=== PATIENT | female | born 1990 | race Caucasian/White ===

== ENCOUNTER 2020-04-24 11:50 | Observation (INO) | payer SELFPAY ==
[2020-04-24] VITALS (11 sets, daily range): BP systolic 105–127; BP diastolic 58–77; PULSE 68–85; RESP 16–20; TEMP 36.3–37.3; O2SAT 95–100; BMI 28.5; BMI 28.6
[2020-04-24] MEDS: 0.9% Saline Lock 10 ML Syringe IV (08:45)
--- NOTE | 2020-04-24 08:52 | RAD_ITS ---
STUDY: INTRAOPERATIVE CHOLANGIOGRAM. REASON FOR EXAM: Female, 30 years old. ABD PAIN, STONES FLUOROSCOPY TIME (if supplied): ( 14.5 seconds ) minutes/seconds. A single image was submitted. TECHNIQUE: Intraoperative cholangiogram was performed by the surgeon. Imaging was submitted. COMPARISON: None. FINDINGS: Mild degree of dilatation of the visualized central intrahepatic biliary ducts as well as the common bile duct. RAD/Cholangiogram/ O R,Initial IMPRESSION: Dilated central intrahepatic biliary ducts as well as the common bile duct. Electronically Signed: Eduardo Louis MD at 10:59 EST , Service support ,
--- NOTE | 2020-04-24 08:53 | EKG12_ITS ---
Test Reason : PREOP Blood Pressure : / mmHG Vent. Rate : 073 BPM Atrial Rate : 073 BPM P-R Int : 146 ms QRS Dur : 078 ms QT Int : 380 ms P-R-T Axes : 019 064 008 degrees QTc Int : 418 ms Normal sinus rhythm Nonspecific ST abnormality Abnormal ECG No previous ECGs available Confirmed by ELTON VALDERRAMA, IRMA ([id number]), purchasing expeditor KENJI WILLAMS ([id number]) on 04/29/2020 8:49:00 AM Referred By: GEORGE Confirmed By:IRMA CONDE MD
[2020-04-24] MEDS: Lactated Ringers 1,000 ML 100 ML IV ×3 (08:55→22:59)
--- NOTE | 2020-04-24 09:17 | HP.PCM_ITS ---
Problem List (1) Choledocholithiasis with acute cholecystitis Status: Acute History of Present Illness Date of Admission: 04/24/20 The patient is a 30 year old F who presented to an outside ER with abdominal pain since yesterday. The patient reports nausea with vomiting. She has no fevers or chills. Patient also reports she is 13 weeks and has a history of miscarriage. The patient reports that the pain is in her abdomen which radiates to the back. Past Medical History Allergies No Known Allergies Allergy (Verified 04/24/20 08:22) Home Medications: Ambulatory Orders Medication Instructions Recorded Levothyroxine [Synthroid] 100 mcg PO DAILY 04/24/20 Smoking Status: Never smoker Review of Systems Constitutional: Denies: Anorexia, Fever HEENT: Denies: Difficulty Swallowing Cardiovascular: Denies: Chest Pain Respiratory: Denies: Cough, Shortness of Breath Gastrointestinal: Reports: Abdominal Pain, Nausea, Vomiting Genitourinary: Denies: Dysuria Gynecological: Reports: - - Currently Musculoskeletal: Denies: Joint Tenderness Skin: Denies: Jaundice Hematologic/ Lymphatic: Denies: Anemia VTE Information - Inpt Only VTE Present on Admission: No VTE Mechan Device Prophylaxis: SCD's - Physical Exam Vitals/I&O's: Vital Signs Temp Pulse Resp BP Pulse Ox 98.3 F 76 16 112/64 100 04/24/20 08:34 04/24/20 08:34 04/24/20 08:34 04/24/20 08:34 04/24/20 08:34 Oxygen Delivery Method Room Air Weight: 171 lb 11.841 oz Body Mass Index (BMI) 28.5 General: Alert, Oriented x3 Neck: No JVD Lungs: Normal air movement Cardiovascular: Regular rate, Regular Rhythm Abdomen: Soft, Non-Distended, Tender - Tender in the upper abdomen Extremities: No clubbing Musculoskeletal: No Muscle Wasting Neurological: Cranial nerves II-XII grossly intact Psych/Mental Status: Normal Affect Current Medications Sodium Chloride () 250 mls @ 15 mls/hr IV .[id number] PRN PRN Reason: Saline Flush Cefotetan Disodium 2 gm/ (Sodium Chloride) 100 mls @ 200 mls/hr IV SEND TO OR W/PATIENT ONE Stop: 04/24/20 09:21 Lactated Ringer's () 1,000 mls @ 100 mls/hr IV .Q10H [facility] Last Admin: 04/24/20 08:55 Dose: 100 mls/hr Documented by: Sodium Chloride (0.9% Saline Lock 10 Ml Syringe) 10 - 40 ml IV UD PRN PRN Reason: SALINE FLUSH Assessment/Plan All Active Problems Choledocholithiasis with acute cholecystitis (Acute) 30-year-old female transferred from outside hospital with choledocholithiasis with acute cholecystitis 1. The patient had an ultrasound done at the outside hospital which showed thickening of the gallbladder wall as well as cholelithiasis. The patient also has elevated liver enzymes and a left shift on her CBC. She has acute onset pain in the upper abdomen which radiates to the back. I believe the patient likely has choledocholithiasis with acute cholecystitis. I recommended laparoscopic cholecystectomy with cholangiogram and I did discuss performing ERCP at the same time if necessary. The patient agrees and would like to proceed. 2. I discussed the procedure in detail with the patient. I discussed the risks, benefits, and alternatives of the procedure. I discussed the risks including but not limited to bleeding, infection, injury to surrounding organs such as the liver, bile duct, bowels. I did discuss the possibility of having to convert to an open procedure as well as the possibility that if any injuries occurred this may necessitate further surgery at a tertiary care center. 3. I also discussed ERCP with the patient. I discussed the risks of bleeding, infection, pancreatitis, perforation of the bile duct or bowel. The patient understands the risks of endoscopy and is willing to proceed if necessary at the same time. 4. The patient is currently and does have a history of miscarriage. I did discuss the possibility and risk of demise or injury with the patient as well. I did discuss with her that if this infection was left alone it would likely cause serious risks of the fetus as well. I believe that the benefit of surgery outweigh the risks. I discussed with OB and they are in agreement. I will get heart tones before and after surgery and order some antibiotics. Patient understands the risk to her fetus and is willing to proceed with surgery. David English MD Pager: [facility] [address] [place] [address], [address] [place] [address] Office:
--- NOTE | 2020-04-24 10:38 | GALL_PTH ---
PATIENT: SHONNA BAKER LOC: MS3 U#:[id number] AGE/SX: 30/F ROOM: CA321 RE04/24/[address]: Dr. David English MD : 1990 BED: 1 DIS: 04/25/2020 SPEC #: [id number] RECD: 04/24/20 11:50 STATUS: JASON RELove #: [id number] AYAZ: 04/24/20 10:[address]: David English DEPT: SURGICAL PATHOLOGY RECD BY: Mecca Rivera ENTERED: 04/24/20 13:06 SP TYPE: MALIA WEIR DR: Dr. Garry Garrido DO Tissues: Gallbladder, NOS Procedures: Surgery Specimen Level III HEADER OPERATION: Laparoscopic cholecystectomy with IOC PRE-OP DIAGNOSIS: Choledocholithiasis with acute cholecystitis TISSUE SUBMITTED: Gallbladder MICROSCOPIC DIAGNOSIS Gallbladder, cholecystectomy: Chronic cholecystitis and cholelithiasis. AM:belia 04/25/2020 MICROSCOPIC DESCRIPTION Slides are reviewed. GROSS DESCRIPTION Received is one container labeled with the patient's name and designated gallbladder. The specimen consists of a gallbladder measuring 7 x 2.5 x 2.5 cm. The external surface is smooth and glistening. Focally, it is granular, hemorrhagic and contains cautery artifact. The lumen of the gallbladder contains a small amount of greenish mucoid bile and multiple green-black calculi ranging in size from 0.1 to 0.5 cm in greatest dimension. The mucosa is bile-stained and without any mass lesions. The gallbladder wall averages 0.2 cm in thickness and is free of mass lesions. Payroll Examiner sections of the gallbladder and the cystic duct at margin of resection are submitted in one cassette. / AM:belia 04/24/20 TC:3 [facility]: [id number]
[2020-04-24] MEDS: Bupiv/Epi 0.25% 30 ML Vial (10:42)
--- NOTE | 2020-04-24 11:10 | RAD_ITS ---
STUDY: ERCP REASON FOR EXAM: Female, 30 years old. ERCP S/P LAP MAGALI -- 1 FLUORO IMAGE, 223.1 SEC, 16.39mGy -- PT IS 13 WEEKS - LOW DOSE OPTION USED ON FLUORO UNIT FLUOROSCOPY TIME (if supplied): ( 223 seconds ) minutes/seconds. One fluoroscopic image provided. TECHNIQUE: ERCP was performed by the surgeon. Imaging was submitted. COMPARISON: None. FINDINGS: There is visualization of the common bile duct. A balloon catheter is seen within it. RAD/ERCP Biliary/Pancreas IMPRESSION: Balloon catheter within the common bile duct. Electronically Signed: Eduardo Louis MD at 12:25 EST , Service support ,
--- NOTE | 2020-04-24 11:44 | SUR.PHASEI ---
HEART TONES OBTAINED IN PACU BY MALKA DOZIRE RN = 160 bpm.
--- NOTE | 2020-04-24 11:51 | OP.PCM_ITS ---
Problem List (1) Choledocholithiasis with acute cholecystitis Status: Acute Report of Operation Date of Procedure: 04/24/20 Pre-Operative Diagnosis: Acute cholecystitis Post-Operative Diagnosis: Choledocholithiasis with acute cholecystitis Surgery/Procedure Performed:: 1. Laparoscopic cholecystectomy with cholangiogram. 2. ERCP with sphincterotomy and stone removal Specimen's removed: Gallbladder and contents Description of Procedure: After obtaining informed consent patient was brought back to the operating room. General anesthesia was induced. The abdomen was prepped and draped in usual sterile fashion. A small midline incision was made superior to the umbilicus and deepened to the level of fascia. The fascia was elevated and incised. Next the peritoneum was elevated and incised in the same fashion. Finger sweep was performed and the Hernandez trocar was placed into the abdomen. The balloon was inflated. The abdomen was inflated to 15 mmHg. Next a camera was introduced into the abdomen and the abdomen was inspected. Next under direct visualization three 5-mm ports were placed one subxiphoid and 2 subcostal. Next the gallbladder was elevated and retracted toward the right shoulder. The peritoneum was stripped from the gallbladder. The infundibulum was located and retracted laterally. Next the triangle of Calot was dissected and the cystic duct and cystic artery were identified. Cholangiograms were performed. A stone was identified in the cystic duct so the Ranfac catheter was selected. A small rosalva was made in the right upper quadrant and the Ranfac was placed into the abdomen. A clip was placed in the proximal cystic duct and the cystic duct was opened with scissors and the stone was milked through. The Ranfac catheter was placed through the cystic duct and a clip was placed over it. Under fluoroscopy contrast was instilled into the gallbladder and the common duct, cystic duct as well as proximal hepatic ducts were identified. There was good filling of the duodenum. There were several filling defects noted in the common bile duct. The clip was removed as well as the catheter and the infundibulum was grasped once more. Three hemolock clips were placed across the cystic duct. The cystic duct was then divided leaving 2 clips on the stump. The cystic artery was clipped and divided in the same fashion. The hook cautery was then used to take the gallbladder off of the gallbladder bed. Hemostasis was obtained. Gallbladder fossa was irrigated and no active bleeding or bile leakage was noted. Next the camera was introduced in the subxiphoid port. An Endopouch bag was placed through the umbilical port and the gallbladder was placed into it. The gallbladder was then removed through the umbilical incision. The camera was then reinserted through the umbilical port. The gallbladder fossa was inspected once more and noted to be hemostatic with no leaking bile. The abdomen was suctioned dry. The 5 mm ports were removed under direct visualization. The umbilical port was then removed and the air was removed from the abdomen. Next using an 0 Vicryl suture the umbilical fascia was closed in a [id number]-[id number] fashion. The umbilical port site was irrigated local anesthetic was administered to all the incisions. All the incisions were closed with interrupted subcuticular 4-0 Monocryl sutures followed by Steri- Strips and dressings. The patient was then turned into a prone position and ERCP was performed. The scope was well lubricated and placed into the mouth and down into the stomach and into the small bowel. The ampulla was identified. A standard sphincterotome was used to cannulate the common bile duct and a wire was placed into the common bile duct under fluoroscopy. Fluoroscopy exposure was turned down to minimize radiation. Contrast was instilled in the common bile duct and there were several stones identified in the common bile duct. Next Erbe current was used to perform a sphincterotomy and the sphincterotome was removed and a 12 mm balloon was placed over the guidewire into the common bile duct and under fluoroscopic examination it was swept several times. Around 10 stones were removed from the common bile duct. After there was good clearance of the common bile duct and the cholangiogram appeared that all the stones had been cleared the guidewire and balloon were removed and the scope was replaced back into the stomach and the stomach was suctioned. The scope was then removed. The patient was then placed back in supine position and then awoken and taken to PACU in stable condition. heart tones will be monitored in PACU. - Admit VTE Documentation VTE Mechan Device Prophylaxis: SCD's
[2020-04-24] MEDS: Morphine 2 MG/ML Syringe IV ×2 (14:41→18:46)
[2020-04-25 00:21] VITALS: BP 107/65; PULSE 79; RESP 16; TEMP 36.8; O2SAT 99
[2020-04-25] MEDS: Acetaminophen 325 MG Tablet 650 MG PO ×3 (00:32→12:26)
--- NOTE | 2020-04-25 00:38 | NURSING ---
Called OB to advise them that pt is awake if they can do heart tones. Renate RN reported that they had come over earlier but pt was sleeping and they didn't want to wake her up.
--- NOTE | 2020-04-25 03:27 | NURSING ---
0055 FHR 150 via doppler by cem Can
[2020-04-25 04:11] VITALS: BP 110/66; PULSE 81; RESP 20; TEMP 37.2; O2SAT 98
[2020-04-25] MEDS: Levothyroxine 100 MCG Tablet PO (05:49)
--- NOTE | 2020-04-25 07:49 | PCM.DC.GB ---
Discharge Diet: Light diet - advance as tolerated Discharge Activity: Return to Normal Activity, May Shower Lifting Restrictions: 20 lbs for 2 weeks Additional Activity Instructions:: Pain medication may cause nausea. You should typically eat light foods as you take your pain medications. Pain medication may also cause constipation. If this is a problem for you, please discuss with your doctor. Call your doctor if your incision/area has: Continuous Slow Oozing, Sudden Increased Bleeding, Increased Pain/ Swelling, Increased Redness, Foul Smelling Discharge, Fever of 101 or Higher Call your doctor if you observe: Fever of 101 or Higher Suture Line Care: Avoid Pulling/Pushing, Avoid Pinching/Bending Additional Dressing/Incision Instructions:: Leave operative bandaids on for 2 days. When you remove dressing, leave Steri-Strips on until your follow-up appointment, or until the Steri-Strips fall off on their own. Allergies/Adverse Reactions: Allergies No Known Allergies Allergy (Verified 04/24/20 08:22) Medications to take at Discharge Fluoxetine HCl [Prozac] 40 mg PO DAILY 04/24/20 Levothyroxine [Synthroid] 100 mcg PO DAILY 04/24/20 Sertraline HCl [Zoloft] 200 mg PO DAILY 04/24/20 Acetaminophen [Tylenol Tablet] 650 mg PO Q4H PRN PRN tablet 04/25/20 Oxycodone [Oxyir] 5 - 10 mg PO Q4H PRN PRN 3 Days #15 tablet 04/25/20 The following prescriptions were given: Oxycodone [Oxyir] 5 - 10 mg PO Q4H PRN PRN 3 Days #15 tablet PRN Reason: Pain Score 4-10 Transmission Status: Sent to [facility] Primary Care Physician: Garry Garrido DO [Primary Care Provider] - Test Results: Test results from this visit will be discussed in further detail at your follow-up appointment, if applicable. Please Follow Up With: David English MD When: Please call to schedule 2 week follow up appointment. [phone]
[2020-04-25] MEDS: FLUoxetine 20 MG Capsule 40 MG PO (08:19)
[2020-04-25] MEDS: 0.9% Saline Lock 10 ML Syringe IV (08:20)
[2020-04-25 08:30] VITALS: BP 114/65; PULSE 81; RESP 16; TEMP 36.8; O2SAT 100
--- NOTE | 2020-04-25 09:53 | CASEMGMT ---
Social Work Note Per PFS notes, PFS Called pt's room. Stated no ins did not want to go over any assistance. Advised her to contact us if she has questions about her bill once she receives statement. Explained discount on first statement. Alondra Knight MSW, BOOM WORKER
--- NOTE | 2020-04-25 09:55 | NURSING ---
heribertot 155 per lee
[2020-04-25 10:00] VITALS: PULSE 80
--- NOTE | 2020-04-25 10:32 | PHA.DC.MC ---
Pharmacy Service has performed discharge medication reconciliation and counseling for this patient. 1. ACETAMINOPHEN 1000MG PO Q4H PRN PAIN 2. OXYCODONE 5-10MG PO Q4H PRN PAIN The patient's discharge medication list was reviewed for discrepancies and discrepancies were resolved. Home Medications Fluoxetine HCl [Prozac] 40 mg PO DAILY 04/24/20 Levothyroxine [Synthroid] 100 mcg PO DAILY 04/24/20 Sertraline HCl [Zoloft] 200 mg PO DAILY 04/24/20 Acetaminophen [Tylenol Tablet] 650 mg PO Q4H PRN PRN tab 04/25/20 Oxycodone [Oxyir] 5 - 10 mg PO Q4H PRN PRN 3 Days #15 tab 04/25/20 The patient was counseled on the following discharge medications and changes in medications for homegoing were reviewed. The Reason for Use, instructions for use, and potential side effects were reviewed for all new medications. The patient's questions regarding all of their medications were answered. The patient was able to verbally demonstrate an understanding of their discharge medications. Patient counseled by pharmacy picking tech
== END 2020-04-25 12:34 | disposition home or self-care (01) ==
PROVIDERS: Admitting Provider Surgery; PCP Family Medicine; Visit Provider Surgery
PROC: (CPT 47610; principal; 2020-04-24 09:35)
DX: O26.611 Liver and biliary tract disorders in pregnancy, first trimester (principal); K80.12 Calculus of gallbladder with acute and chronic cholecystitis without obstruction; Z79.899 Other long term (current) drug therapy; Z3A.13 13 weeks gestation of pregnancy; O99.281 Endocrine, nutritional and metabolic diseases complicating pregnancy, first trimester; E07.9 Disorder of thyroid, unspecified
CPT/HCPCS: 00790; 43262; 43264; 47563; 74300; 74330; 76000; 87426; 88304; 93005; 96361; 96374; 96376; 99218; 99251; J7120; A4216; G0378; G0379; G0463; J1610; J2405